=== PATIENT | male | born 1980 | race Two or more races ===

== ENCOUNTER 2021-04-26 11:00 | Inpatient (IN) | payer OTHER ==
[~2021-04-26] VITALS: Ht 170.2 cm; Wt 97.5 kg
[2021-04-26] MEDS ORDERED: NAPR500T14 PO (13:20)
[2021-04-26] MEDS ORDERED: NEURONTIN600 MG (13:21)
[2021-04-26] MEDS ORDERED: [UNRECOGNIZED DRUG - OTHER] (13:21)
[2021-05-01] MEDS ORDERED: FEXMID7.5 MG PO (14:40)
== END 2021-05-02 11:36 | disposition home or self-care (01) | DRG 473 ==
LOC: O/R 05-01 05:12 → PED 05-01 05:12 → SURH 05-01 07:00 → PED 05-01 15:37
PROVIDERS: ADMIT Student in an Organized Health Care Education/Training Program; ATTEND Student in an Organized Health Care Education/Training Program
PROC: 0RB30ZZ Excision of Cervical Vertebral Disc, Open Approach (ICD-10-PCS; 2021-05-01)
PROC: 01N10ZZ Release Cervical Nerve, Open Approach (ICD-10-PCS; 2021-05-01)
PROC: 3E0U0GB Introduction of Recombinant Bone Morphogenetic Protein into Joints, Open Approach (ICD-10-PCS; 2021-05-01)
PROC: 0RG20J0 Fusion of 2 or more Cervical Vertebral Joints with Synthetic Substitute, Anterior Approach, Anterior Column, Open Approach (ICD-10-PCS; principal; 2021-05-01 07:00)
DX: M48.02 Spinal stenosis, cervical region (principal); M54.12 Radiculopathy, cervical region; Z20.822 Contact with and (suspected) exposure to COVID-19